=== PATIENT | female | born 1985 | race Two or more races ===

== ENCOUNTER 2025-10-09 18:52 | Emergency (ER) | payer OTHER ==
[~2025-10-09] VITALS: Ht 162.6 cm; Wt 56.7 kg
[2025-10-09] MEDS ORDERED: LO LOESTRIN FE1 EACH (19:49)
[2025-10-09 19:50] VITALS: BP 138/86; O2SAT 100
[2025-10-09] MEDS ORDERED: TRIAMCINOLONE10 GM (19:50)
[2025-10-09] MEDS ORDERED: MAG HYDROX/ALUMINUM HYD/SIMETH 30 ML BLIST.PACK PO ONE (20:15)
[2025-10-09] MEDS ORDERED: METHYLPREDNISOLONE SOD SUCC 125 MG VIAL IV ONE (20:15)
[2025-10-09] MEDS ORDERED: DIPHENHYDRAMINE HCL 50 MG/ML VIAL 1ML IV ONE (20:15)
[2025-10-09] MEDS ORDERED: HYOSCYAMINE SULFATE 0.125 MG TAB.SUBL SL ONE (20:15)
[2025-10-09 21:23] LABS: BASO % 0.7 % (0.1-1.2); EOS # 0.14 (0.04-0.54); EOS % 1.4 % (0.7-7.0); LYMPH # 3.46 (1.18-3.74); LYMPH % 34.7 % (19.3-53.1); MEAN PLATELET VOLUME 10.40 fl (9.4-12.4); MONO # 0.66 (0.24-0.82); MONO % 6.6 % (4.7-12.5); NEUT # 5.61 (1.56-6.13); NEUT % 56.4 % (34.0-71.1); RED CELL DISTRIBUTION WIDTH 12.1 % (11.6-14.4)
[2025-10-09] MEDS ORDERED: LEVSIN/SL0.125 MG SL (22:25)
[2025-10-09] MEDS ORDERED: BENADRYL ALLERG25 MG PO (22:25)
== END 2025-10-09 22:42 | disposition home or self-care (01) ==
LOC: ER 18:53
PROVIDERS: General Practice
DX: T78.19XA Other adverse food reactions, not elsewhere classified, initial encounter (principal); Z88.6 Allergy status to analgesic agent; Z91.013 Allergy to seafood
CPT/HCPCS: 36415; 72040; 96365; 99283; J1200; J3490